=== PATIENT | female | born 1985 | race Caucasian/White ===

== ENCOUNTER 2019-03-29 10:24 | Emergency (ER) | payer OTHER, BC ==
[2019-03-29 11:20] LABS: #Eosinphils 0.1 thou/uL (0.0-0.7); #Lymphocytes 0.9 thou/uL (1.20-3.40); #Monocytes 0.4 thou/uL (0.11-0.59); #Neutrophils 2.5 thou/uL (1.40-6.50); %Basophils 1.2 % (0.0-1.0); %Eosinophils 1.7 % (0.0-10.0); %Lymphocytes 22.4 % (21.0-51.0); %Monocytes 10.8 % (0.0-10.0); %Neutrophils 63.8 % (42.0-75.0); Hemoglobin 13.6 g/dL (12.0-16.0); Mean Corpuscular HGB CONC 35.9 g/dL (32.0-36.0); Mean Corpuscular Hemoglobin 32.1 pg (27.0-31.0); Mean Corpuscular Volume 89.6 fL (78.0-98.0); Mean Platelet Volume 8.7 fL (7.4-10.4); Platelet Count 203 thou/uL (130-400); RBC Distribution Width 11.4 % (11.5-14.5); Red Blood Cell (RBC) Count 4.25 mill/uL (4.20-5.40); White Blood Cell (WBC) Count 3.9 thou/uL (4.8-10.8)
[2019-03-29 11:25] LABS: BHCG - Serum Negative (NEGATIVE); Pregs Control Background? CLEAR/WHITE (CLR/WHITE); Pregs Control Bar Appear? YES (CONTROL BAR)
[2019-03-29] MEDS ORDERED: Ketorolac Tromethamine 30 MG/ML VIAL ONE (11:31)
[2019-03-29] MEDS ORDERED: predniSONE 20 MG TAB ONE (11:31)
[2019-03-29 11:32] LABS: ALT (SGPT) 51 U/L (8-55); AST (SGOT) 20 U/L (5-34); Albumin 4.2 g/dL (3.5-5.0); Alkaline Phosphatase 47 U/L (40-150); Anion Gap 13 mmol/L (10-20); BUN (Urea Nitrogen) 12 mg/dL (7.0-18.7); Bilirubin, Total 0.6 mg/dL (0.2-1.2); CK (CPK) 74 U/L (29-168); Calc. Creatinine Clearance 0 mL/min (70-130); Calcium 8.6 mg/dL (7.8-10.44); Carbon Dioxide 21 mmol/L (22-29); Chloride 107 mmol/L (98-107); Estimated GFR-MDRD 79; Globulin 3.2 g/dL (2.4-3.5); Glucose 110 mg/dL (70-105); Lipase 19 U/L (8-78); Potassium 3.5 mmol/L (3.5-5.1); Protein, Total 7.4 g/dL (6.0-8.3); Sodium 137 mmol/L (136-145)
[2019-03-29 11:48] LABS: Thyroid Stimulating Hormone 0.6574 uIU/mL (0.35-4.94)
== END 2019-03-29 12:09 | disposition home or self-care (01) ==
LOC: SCSER 10:24
DX: J30.2 Other seasonal allergic rhinitis (principal); M54.9 Dorsalgia, unspecified; R10.10 Upper abdominal pain, unspecified; F41.9 Anxiety disorder, unspecified; F32.9 Major depressive disorder, single episode, unspecified
CPT/HCPCS: 36415; 80053; 82550; 83690; 84443; 84703; 85025; 96372; J1885; J7512

== ENCOUNTER 2019-04-22 21:56 | Emergency (ER) | payer OTHER, BC ==
--- NOTE | 2019-04-22 22:58 | ULT ---
EXAM: Left lower extremity venous ultrasound HISTORY: Left lower extremity pain and edema COMPARISON: None TECHNIQUE: Multiplanar grayscale and color Doppler images were obtained in a left lower extremity weston ous ultrasound. Spectral analysis of the Doppler waveforms were performed. FINDINGS: The common femoral vein, profunda femoral vein, superficial femoral vein, and popliteal vei n are normal in appearance without visible thrombus. These vessels demonstrate normal compression, flow, and augmentation. The posterior tibial vein and greater saphenous vein are patent without evidence of DVT. IMPRESSION: No evidence of DVT.
== END 2019-04-22 23:41 | disposition home or self-care (01) ==
LOC: ERS 21:56
DX: M25.562 Pain in left knee (principal); F41.9 Anxiety disorder, unspecified; F32.9 Major depressive disorder, single episode, unspecified

== ENCOUNTER 2020-11-07 09:00 | Outpatient (CLI) | payer OTHER ==
--- NOTE | 2020-11-07 10:10 | RAD ---
EXAM: XR Foot Lt 2 View PROVIDED CLINICAL HISTORY: Other specified arthritis COMPARISON: None FINDINGS: Metatarsus primum varus and hallux valgus. Alignment appears otherwise anatomic. Joint spaces appear preserved. No evidence for fracture or other acute osseous abnormality. Bipartite tibial great toe sesamoid. IMPRESSION: Hallux valgus.
--- NOTE | 2020-11-07 10:10 | RAD ---
EXAM: XR Foot Rt 2 View PROVIDED CLINICAL HISTORY: Other specified arthritis COMPARISON: None FINDINGS: Metatarsus primum varus and hallux valgus. Alignment appears otherwise anatomic. Joint spaces appear preserved. No evidence for fracture or other acute osseous abnormality. IMPRESSION: Hallux valgus.
--- NOTE | 2020-11-07 10:11 | RAD ---
EXAM: XR Hip Rt 1 View PROVIDED CLINICAL HISTORY: Other specified arthritis COMPARISON: None FINDINGS: The right hip joint space appears preserved. Evaluation for fracture and of alignment is limited in t he absence of additional projections. No lytic or blastic bony lesions are seen. IMPRESSION: As above.
--- NOTE | 2020-11-07 12:05 | RAD ---
LEFT HIP 1 VIEW: HISTORY: Hip pain. FINDINGS: On the single projection the hip appears normal. No joint space narrowing. IMPRESSION: Unremarkable AP view of the hip. POS: CORNELIUS
--- NOTE | 2020-11-07 12:11 | RAD ---
RIGHT KNEE 3 VIEWS: HISTORY: Knee pain. FINDINGS: Joint spaces appear fairly well preserved. No joint effusion. No erosive bony change. IMPRESSION: Unremarkable right knee. POS: CORNELIUS
--- NOTE | 2020-11-07 12:12 | RAD ---
LEFT KNEE 3 VIEWS: Date: 11/07/2020 HISTORY: Knee pain. FINDINGS: Joint spaces appear fairly well preserved. No joint effusion. No erosive bony change. IMPRESSION: Unremarkable left knee. POS: CORNELIUS
== END 2020-11-07 09:01 | disposition home or self-care (01) ==
LOC: BICRAD 09:00
PROVIDERS: ATTEND Orthopaedic Surgery
DX: M19.90 Unspecified osteoarthritis, unspecified site (principal); T14.8XXA Other injury of unspecified body region, initial encounter; M20.12 Hallux valgus (acquired), left foot; M20.11 Hallux valgus (acquired), right foot